=== PATIENT | female | born 1945 | race Caucasian/White ===

== ENCOUNTER → 2016-12-06 | Outpatient (CLI) | payer MEDICARE, OTHER | LOC: MC.RAD 11:20 | DX: Z12.31 Encounter for screening mammogram for malignant neoplasm of breast (principal) ==

== ENCOUNTER → 2018-04-04 | Outpatient (CLI) | payer MEDICARE | LOC: MC.RAD 10:00 | DX: Z12.31 Encounter for screening mammogram for malignant neoplasm of breast (principal) ==

== ENCOUNTER 2018-10-05 14:56 | Emergency (ER) | payer MEDICARE ==
[~2018-10-05] VITALS: Ht 157.5 cm; Wt 72.3 kg
[2018-10-05 15:00] VITALS: TEMP 97.7
[2018-10-05] MEDS ORDERED: PRINIVIL40 MG PO (15:02)
[2018-10-05] MEDS ORDERED: ASPIRIN 81M81 MG/TA2 PO (15:03)
[2018-10-05] MEDS ORDERED: NORVASC 10MG10 MG PO (15:03)
[2018-10-05 16:18] VITALS: BP 168/87; PULSE 80
== END 2018-10-05 16:20 | disposition home or self-care (01) ==
LOC: COL.ER 14:56
DX: S61.210A Laceration without foreign body of right index finger without damage to nail, initial encounter (principal); I10 Essential (primary) hypertension; Z23 Encounter for immunization; Z79.82 Long term (current) use of aspirin; W26.8XXA Contact with other sharp object(s), not elsewhere classified, initial encounter; Y92.009 Unspecified place in unspecified non-institutional (private) residence as the place of occurrence of the external cause

== ENCOUNTER 2018-10-19 10:23 | Emergency (ER) | payer MEDICARE ==
[~2018-10-19 10:23] MED LIST: ASPIRIN 81M81 MG/TA2 PO; NORVASC 10MG10 MG PO; PRINIVIL40 MG PO
[2018-10-19 10:28] VITALS: BP 138/85; PULSE 92; TEMP 97.5
== END 2018-10-19 10:40 | disposition home or self-care (01) ==
LOC: COL.ER 10:23
DX: S61.216D Laceration without foreign body of right little finger without damage to nail, subsequent encounter (principal); X58.XXXD Exposure to other specified factors, subsequent encounter

== ENCOUNTER 2021-10-05 06:51 | Inpatient (IN) | payer MEDICARE ==
[2021-10-05] VITALS (674 sets, daily range): BP systolic 88–144; BP diastolic 39–94; PULSE 85–91; TEMP 97.6–97.7; O2SAT 78–98
[~2021-10-05] VITALS: Ht 157.5 cm; Wt 84.5 kg
[2021-10-05 07:19] LABS: BASO # 0.1 K/mm3 (0.0-0.2); BASO % 0.7 % (0.0-2.0); EOS # 0.1 K/mm3 (0.0-0.7); EOS % 0.8 % (0.0-4.0); GRAN # 9.6 K/mm3 (1.4-6.5); GRAN % 68.4 % (42.2-75.2); HEMATOCRIT 48.5 % (37.0-47.0); HEMOGLOBIN 15.2 g/dl (12.5-16.0); LYMPH # 3.7 K/mm3 (1.2-3.4); LYMPH % 26.2 % (20.0-51.0); MEAN CELL VOLUME 95 fl (80.0-100.0); MEAN CORPUSCULAR HEMOGLOBIN 30 pg (27-31); MEAN CORPUSCULAR HGB CONC 31 g/dl (33.0-37.0); MEAN PLATELET VOLUME 11.2 fl (7.4-10.4); MONO # 0.5 K/mm3 (0.1-0.6); MONO % 3.5 % (1.7-9.3); PLATELET COUNT 179 K/mm3 (130-400); RED BLOOD COUNT 5.11 M/mm3 (4.10-5.30)
[2021-10-05 07:59] LABS: ALBUMIN 3.1 gm/dL (3.4-4.8); BILIRUBIN,TOTAL 0.8 mg/dL (0.2-1.2); CALCIUM 8.2 mg/dL (8.4-10.2); CREATININE, serum 1.13 mg/dL (0.57-1.11); POTASSIUM 4.6 mmol/L (3.5-4.5); TOTAL PROTEIN 6.6 gm/dL (6.2-8.1)
[2021-10-05 08:03] LABS: INR 1.3 (0.8-3.0); PROTHROMBIN TIME 14.3 SECONDS (9.7-12.8)
[2021-10-05 08:06] LABS: TROPONIN-I 0.342 ng/mL (0.00-0.033)
[2021-10-05 09:22] LABS: PARTIAL THROMBOPLASTIN TIME 28.1 SECONDS (26.0-37.0)
[2021-10-05] MEDS ORDERED: GLUCOPHAGE500 MG/TAB PO (12:02)
[2021-10-05] MEDS ORDERED: VESICARE10 MG PO (12:03)
[2021-10-05] MEDS ORDERED: CRANBERRY500 M3 PO (12:04)
[2021-10-05] MEDS ORDERED: OMEGA-3 1000 MG1 CAP PO (12:05)
[2021-10-05] MEDS ORDERED: VITAMINC1000TA (12:05)
[2021-10-05] MEDS ORDERED: VITAMIN D31000 I1 PO (12:06)
[2021-10-05 13:38] LABS: COLLECTION METHOD CATHETER
[2021-10-05 13:45] LABS: MUCOUS Present (NOT PRESENT); PH 5 (5-8); SQUAMOUS EPITHELIAL 0-2 /hpf (0-10); URINE APPEARANCE Clear (CLEAR/HAZY); URINE BACTERIA None Seen /hpf (NONE SEEN); URINE BILIRUBIN Negative (NEGATIVE); URINE BLOOD Negative (NEGATIVE); URINE COLOR Yellow (YELLOW); URINE GLUCOSE Negative (NEGATIVE); URINE KETONE Negative (NEGATIVE); URINE LEUKOCYTE ESTERASE Negative (NEGATIVE); URINE NITRATE Negative (NEGATIVE); URINE PROTEIN(semi-quant) Negative (NEGATIVE); URINE RBC 0-2 /hpf (0-2); URINE UROBILINOGEN Negative (NEGATIVE)
[2021-10-05 13:57] LABS: ARTERIAL BLD GAS O2 SATURATION 94.2 % (92-100); ARTERIAL BLD GAS TCO2 CT 22.7; ARTERIAL BLOOD GAS HCO3 21.5 meq/L (22-26); ARTERIAL BLOOD GAS PCO2 40.6 mmHg (35-45); ARTERIAL BLOOD GAS PO2 74.2 mmHg (80-100); ARTERIAL BLOOD GAS pH 7.34 (7.35-7.45)
[2021-10-06] VITALS (1241 sets, daily range): BP systolic 145–157; BP diastolic 75–107; PULSE 84–101; TEMP 97.8–98.7; O2SAT 78–100
[2021-10-06 04:10] LABS: BASO % 0.2 % (0.0-2.0); GRAN % 86.2 % (42.2-75.2); HEMATOCRIT 43.4 % (37.0-47.0); HEMOGLOBIN 13.8 g/dl (12.5-16.0); MEAN CELL VOLUME 94 fl (80.0-100.0); MEAN CORPUSCULAR HEMOGLOBIN 30 pg (27-31); MEAN CORPUSCULAR HGB CONC 32 g/dl (33.0-37.0); MONO # 0.3 K/mm3 (0.1-0.6); MONO % 3.2 % (1.7-9.3); PLATELET COUNT 138 K/mm3 (130-400); RED BLOOD COUNT 4.62 M/mm3 (4.10-5.30); REDCELL DISTRIBUTION WIDTH-CV 14.1 % (11.5-14.5)
[2021-10-06 04:30] LABS: ALBUMIN 2.9 gm/dL (3.4-4.8); BILIRUBIN,TOTAL 0.4 mg/dL (0.2-1.2); CALCIUM 7.8 mg/dL (8.4-10.2); CREATININE, serum 0.99 mg/dL (0.57-1.11); POTASSIUM 4.5 mmol/L (3.5-4.5); TOTAL PROTEIN 6.2 gm/dL (6.2-8.1)
[2021-10-07] VITALS (714 sets, daily range): BP systolic 121–187; BP diastolic 59–104; PULSE 78–101; TEMP 97.5–99.3; O2SAT 81–99
[2021-10-07 05:22] LABS: HEMATOCRIT 42.2 % (37.0-47.0); HEMOGLOBIN 13.2 g/dl (12.5-16.0); MEAN CELL VOLUME 94 fl (80.0-100.0); MEAN CORPUSCULAR HEMOGLOBIN 29 pg (27-31); MEAN CORPUSCULAR HGB CONC 31 g/dl (33.0-37.0); MEAN PLATELET VOLUME 11.1 fl (7.4-10.4); PLATELET COUNT 149 K/mm3 (130-400); RED BLOOD COUNT 4.49 M/mm3 (4.10-5.30); REDCELL DISTRIBUTION WIDTH-CV 14.1 % (11.5-14.5)
[2021-10-07 05:38] LABS: CALCIUM 8.6 mg/dL (8.4-10.2); CREATININE, serum 0.69 mg/dL (0.57-1.11); POTASSIUM 4.6 mmol/L (3.5-4.5)
[2021-10-07 05:59] LABS: LYMPHOCYTE 5 % (20.0-51.0); NEUTROPHILS 93 % (42.0-75.2)
[2021-10-07 06:00] LABS: HYPOCHROMIA 2+; PLATELET ESTIMATE NORMAL (NORMAL)
[2021-10-07 11:26] LABS: INR 1.2 (0.8-3.0); PROTHROMBIN TIME 13.5 SECONDS (9.7-12.8)
[2021-10-07 11:28] LABS: PARTIAL THROMBOPLASTIN TIME 30.1 SECONDS (26.0-37.0)
[2021-10-08] VITALS: BP 153/70; PULSE 81; TEMP 97.9
[2021-10-08 04:11] VITALS: BP 134/72; PULSE 74; TEMP 98.2
[2021-10-08 08:00] VITALS: BP 155/79; PULSE 89; TEMP 98.2
[2021-10-08] MEDS ORDERED: ELIQUIS 5MG PO (11:26)
[2021-10-08 11:57] VITALS: BP 158/71; PULSE 80; TEMP 98.1
[2021-10-08] MEDS ORDERED: OXYGEN NASAL.CANN (14:17)
[2021-10-08] MEDS ORDERED: RT ADVAIR HFA 2312 G IH (14:28)
== END 2021-10-08 18:05 | disposition home health service (06) | DRG 175 ==
LOC: COL.ER 06:51 → SURG 09:41 → ICU 09:41 → SURG 10-07 11:29
PROVIDERS: Emergency Medicine; Internal Medicine Sleep Medicine; Radiology Diagnostic Radiology; ADMIT Student in an Organized Health Care Education/Training Program
PROC: 5A0935A Assistance with Respiratory Ventilation, Less than 24 Consecutive Hours, High Flow/Velocity Cannula (ICD-10-PCS; principal; 2021-10-05)
PROC: 0BBG3ZX Excision of Left Upper Lung Lobe, Percutaneous Approach, Diagnostic (ICD-10-PCS; 2021-10-07)
DX: I26.99 Other pulmonary embolism without acute cor pulmonale (principal); J96.01 Acute respiratory failure with hypoxia; I82.451 Acute embolism and thrombosis of right peroneal vein; I24.8 Other forms of acute ischemic heart disease; C34.12 Malignant neoplasm of upper lobe, left bronchus or lung; I95.9 Hypotension, unspecified; M81.0 Age-related osteoporosis without current pathological fracture; E11.9 Type 2 diabetes mellitus without complications; I51.9 Heart disease, unspecified; I10 Essential (primary) hypertension; Z66 Do not resuscitate; E87.5 Hyperkalemia; I27.20 Pulmonary hypertension, unspecified; I82.461 Acute embolism and thrombosis of right calf muscular vein; J44.9 Chronic obstructive pulmonary disease, unspecified; R59.1 Generalized enlarged lymph nodes; E66.9 Obesity, unspecified; R32 Unspecified urinary incontinence; E78.5 Hyperlipidemia, unspecified; Z20.822 Contact with and (suspected) exposure to COVID-19; Z88.0 Allergy status to penicillin; Z87.891 Personal history of nicotine dependence; Z68.33 Body mass index [BMI] 33.0-33.9, adult; Z23 Encounter for immunization; Z79.82 Long term (current) use of aspirin; Z79.84 Long term (current) use of oral hypoglycemic drugs
CPT/HCPCS: 99223-AI; 99233-AI; 99239; A4314; C1751; J0692; J1644; J1815; J2920; J3010; J7030; J7050; J7120; Q9967

== ENCOUNTER 2021-11-18 08:29 | Day surgery (SDC) | payer MEDICARE, MEDICAID ==
[~2021-11-18] VITALS: Ht 157.5 cm; Wt 76.2 kg
[~2021-11-18 08:29] MED LIST changes: +COLACE 100100 MG/CAP PO; +CRANBERRY500 M3 PO; +ELIQUIS 5MG PO; +GLUCOPHAGE500 MG/TAB PO; +OMEGA-3 1000 MG1 CAP PO; +OXYGEN NASAL.CANN; +RT ADVAIR HFA 2312 G IH; +SPIRIVA RE2.5 MCG/Ac PO; +VESICARE10 MG PO; +VITAMIN D31000 I1 PO; +VITAMINC1000TA
[2021-11-18 09:00] VITALS: BP 163/72; PULSE 85; TEMP 97.4
[2021-11-18] MEDS ORDERED: ELIQUIS 5MG PO (09:27)
[2021-11-18] MEDS ORDERED: [UNRECOGNIZED DRUG - OTHER] PO (09:32)
[2021-11-18] MEDS ORDERED: REFRESH PLUS 00.4 M1 OP (09:33)
[2021-11-18] MEDS ORDERED: OMEGA-3 1000 MG1 CAP PO (09:33)
[2021-11-18] MEDS ORDERED: NORCO 325 MG-51 TAB PO (12:32)
[2021-11-18 13:05] VITALS: BP 153/72; PULSE 79; TEMP 97.2
--- NOTE | 2021-11-18 13:05 | NUR ---
The patient arrived back to [facility] from the recovery room at this time. The patient appears alert and oriented and denies any pain or nausea at this time. Post opreative vital signs were started at this time. The patient's dressings to her left and right upper chest appear clean, dry and intact. The patient agrees to try a sprite zero at this time. Call light is within reach. Daughter at bedside. Denies any further need.
[2021-11-18 13:20] VITALS: BP 133/72; PULSE 73
--- NOTE | 2021-11-18 13:20 | NUR ---
The patient appears to be tolerating the sprite zero well. The patient's vital signs appear stable. The patient agrees to try a muffin at this time. The patient's daughter remains at her bedside. Call light is within reach. Will continue to monitor the patient.
[2021-11-18 13:35] VITALS: BP 129/82; PULSE 80
--- NOTE | 2021-11-18 13:35 | NUR ---
The patient has finished her muffin and appeared to tolerate it well. The patient appeared to tolerate it well. Vital signs remain stable. The patient cotinues to have oxygen in place at 1L per nasal cannula. The patient has home oxygen that she wears at night at 1L if she were to need to continue to wear it at home.
[2021-11-18 13:50] VITALS: BP 148/80; PULSE 78
--- NOTE | 2021-11-18 13:50 | NUR ---
The patient appears to be resting comfortably on the bed listening to her daughter read her a book. The patient denies any pain or nausea at this time.
--- NOTE | 2021-11-18 14:00 | NUR ---
Discharge instructions were reviewed with the patient and her daughter at this time. They both verbalized understanding and have no questions for the nurse at this time. The patient ambulated to the bathroom with the stand by assistance of one nurse and appeared to tolerate the activity well. The patient voided without difficulty and voices desire to be discharge home.
--- NOTE | 2021-11-18 14:10 | NUR ---
The patient has returned from the bathroom and her IV to her left hand was removed and a pressure dressing was applied to the site. The patient was instructed to get dressed and notify the staff when she is ready to be escorted out.
--- NOTE | 2021-11-18 14:20 | NUR ---
The patient was escorted out via wheelchair to a private vehicle by SAULO Lyons. The patient's belongings and discharge paperwork were sent with her. The patient's daughter, Delaney, is present to drive her home.
== END 2021-11-18 14:20 | disposition home or self-care (01) ==
LOC: SDCO 08:29
DX: C43.4 Malignant melanoma of scalp and neck (principal); Z87.891 Personal history of nicotine dependence; C34.92 Malignant neoplasm of unspecified part of left bronchus or lung; I26.94 Multiple subsegmental thrombotic pulmonary emboli without acute cor pulmonale; N83.8 Other noninflammatory disorders of ovary, fallopian tube and broad ligament
CPT/HCPCS: C1788; J0690; J1100; J1644; J2405; J2704; J3010; J7120